=== PATIENT | female | born 1955 | race Caucasian/White ===

== ENCOUNTER 2016-06-19 | Emergency (ER) | payer MEDICARE, MEDICAID, OTHER | END 2016-06-19 20:43 | disposition left against medical advice (07) | DX: Z53.21 Procedure and treatment not carried out due to patient leaving prior to being seen by health care provider (principal) ==

== ENCOUNTER 2016-06-23 17:26 | Emergency (ER) | payer MEDICARE, MEDICAID, OTHER ==
[2016-06-23] MEDS ORDERED: SODIUM CHLORIDE 0.9% 1,000 ML IV ONE (17:48)
[2016-06-23] MEDS ORDERED: ONDANSETRON 4 MG/2 ML VIAL IVP STA (17:48)
[2016-06-23] MEDS ORDERED: KETOROLAC 60 MG/2 ML VIAL IVP STA (17:48)
[2016-06-23] MEDS ORDERED: LOPERAMIDE 2 MG CAPSULE PO ONE ×2 (17:56→18:51)
[2016-06-23] MEDS ORDERED: ONDANSETRON 4 MG/2 ML VIAL ONE (17:56)
[2016-06-23] MEDS ORDERED: KETOROLAC 30 MG/ML VIAL ONE (17:56)
[2016-06-23] MEDS: LOPERAMIDE 2 MG CAPSULE PO STA ×2 (17:59→18:00)
[2016-06-23] MEDS ORDERED: ONDANSETRON ODT 4 MG Prepack 2 TL STA (18:47)
[2016-06-23] MEDS ORDERED: LOPERAMIDE 2 MG CAPSULE PO STA (18:47)
[2016-06-23] MEDS ORDERED: ONDANSETRON ODT 4 MG Prepack 2 TL ONE (18:51)
== END 2016-06-23 19:19 | disposition home or self-care (01) ==
DX: E86.0 Dehydration (principal); R05 Cough; R11.2 Nausea with vomiting, unspecified; R19.7 Diarrhea, unspecified; I10 Essential (primary) hypertension; E11.9 Type 2 diabetes mellitus without complications; Z79.4 Long term (current) use of insulin; J45.909 Unspecified asthma, uncomplicated; Z79.82 Long term (current) use of aspirin
CPT/HCPCS: 36415; 71020; 80053; 83690; 85025; 96374; 96375; 99283; 99284; A9270

== ENCOUNTER 2016-10-08 07:22 | Outpatient (CLI) | payer MEDICARE, MEDICAID | END 2016-10-08 23:59 | DX: N76.0 Acute vaginitis (principal) ==

== ENCOUNTER 2017-03-10 12:44 | Emergency (ER) | payer MEDICARE, MEDICAID ==
[2017-03-10] MEDS ORDERED: diphenhydrAMINE INJ 50 MG/ML VIAL IVP STA (13:17)
[2017-03-10] MEDS ORDERED: PROCHLORPERAZINE 10 MG/2 ML VIAL IVP STA (13:17)
[2017-03-10] MEDS ORDERED: SODIUM CHLORIDE 0.9% 1,000 ML IV ONE (13:17)
--- NOTE | 2017-03-10 13:19 | ED Physician Documentation ---
History of Present Illness - Stated complaint Stated Complaint: MIGRAINE - Chief complaint Chief Complaint: Neuro - Additonal information Additional information: hx from pt 61 female hx migraine DUENAS that feels like prior migraines, frontal, severe, assoc NV and photophobia since yesterday no fever no trauma no CO no numbness or weakness Review of Systems Constitutional: denies: Fever Eyes: reports: Photophobia Cardiac: denies: Chest pain / pressure Respiratory: denies: Dyspnea GI: reports: Nausea, Vomiting Neurologic: reports: Headache. 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 - Present Medications Home Medications: Ambulatory Orders Medication Instructions Recorded Confirmed Furosemide [Lasix] 20 mg PO BID 04/26/14 03/10/17 Insulin Detemir [Levemir Flexpen] 50 unit SQ BID 04/26/14 03/10/17 Losartan [Cozaar] 50 mg PO DAILY 04/26/14 03/10/17 Omeprazole 20 mg PO DAILY 04/26/14 03/10/17 Pravastatin Sodium 50 mg PO DAILY 04/26/14 03/10/17 metFORMIN [Glucophage] 1,000 mg PO BID 04/26/14 03/10/17 oxyCODONE [Roxicodone] 10 mg PO Q6H PRN #20 tablet 04/15/15 03/10/17 Empagliflozin [Jardiance] 25 mg PO DAILY 03/10/17 03/10/17 Promethazine [Phenergan] 25 mg PO Q6H PRN #10 tablet 03/10/17 - Allergies Allergies/Adverse Reactions: Allergies Allergy/AdvReac Type Severity Reaction Status Date / Time Penicillins Allergy Rash Verified 06/23/16 17:29 hydromorphone HCl * AdvReac Nausea Verified 06/23/16 17:29 [From Dilaudid] - Social History Does the pt smoke?: No Smoking Status: Never smoker Does the pt drink ETOH?: Yes Does the pt have substance abuse?: No - Immunizations Immunizations are current?: Yes PD ED PE NORMAL - Vitals Vital signs reviewed: Yes - General General: Alert and oriented X 3 - HEENT HEENT: PERRL, EOMI, Other (no TA TTP, gobes soft, not injected or hazy) - Neck Neck: Supple, no meningeal sign - Cardiac Cardiac: RRR - Respiratory Respiratory: No respiratory distress, Clear bilaterally - Abdomen Abdomen: Soft, Non tender - Derm Derm: Normal color - Neuro Neuro: Alert and oriented X 3, No motor deficit, No sensory deficit Results - Vitals Vitals: Vital Signs - 24 hr 03/10/17 03/10/17 12:54 13:47 Temperature 36.3 C L 36.6 C Heart Rate 84 97 Respiratory 16 16 Rate Blood Pressure 186/86 H 172/73 H O2 Saturation 99 97 Oxygen O2 Source Room air - Labs Labs: Laboratory Tests 03/10/17 13:12 POC Whole Bld Glucose 131 H PD MEDICAL DECISION MAKING - ED course ED course: toradol compazine benadryl IVF and felt better Departure - Departure Disposition: 01 Home, Self Care Clinical Impression: Migraine Condition: Good Instructions: ED Headache Migraine Prescriptions: Promethazine [Phenergan] 25 mg PO Q6H PRN #10 tablet PRN Reason: vomiting Comments: Stay at home and rest and drink plenty of fluids for the next 24 hr. If the headache starts to come back, take the phenergan so you do not vomit and then you should be able to keep down tylenol and motrin Follow up with your PMD Return if worse or new symptoms develop
[2017-03-10] MEDS ORDERED: PROCHLORPERAZINE 10 MG/2 ML VIAL ONE (13:26)
[2017-03-10] MEDS ORDERED: diphenhydrAMINE INJ 50 MG/ML VIAL ONE (13:26)
[2017-03-10] MEDS ORDERED: SODIUM CHLORIDE FLUSH 0.9% 10 ML SYRINGE IVP ONE (13:26)
[2017-03-10 13:48] VITALS: BP 172/73
== END 2017-03-10 14:27 | disposition home or self-care (01) ==
LOC: ED 12:44
DX: G43.909 Migraine, unspecified, not intractable, without status migrainosus (principal); J45.909 Unspecified asthma, uncomplicated; E11.9 Type 2 diabetes mellitus without complications; Z79.84 Long term (current) use of oral hypoglycemic drugs; Z98.84 Bariatric surgery status
CPT/HCPCS: 96374; 96375; 99283; 99284

== ENCOUNTER 2020-11-03 02:43 | Emergency (ER) | payer MEDICARE, MEDICAID ==
--- NOTE | 2020-11-03 03:02 | ED Physician Documentation ---
History of Present Illness - Stated complaint Stated Complaint: HEADACHE, LOWER BACK PX, ITCHY - Chief complaint Chief Complaint: General - History obtained from History obtained from: Patient - History of Present Illness Timing: Enter time (22:00), Today Pain level now: 6 Improved by: nothing Worsened by: no exacerbating factors - Additonal information Additional information: Patient presents complaining primarily of diffuse pruritus. She also has nausea and vomiting, generalized headache. She also complains of back pain, although this is chronic. patient saw her primary care provider earlier today, and was started on new prescriptions for her chronic pain. She has been taking oxycodone 10 mg TID, but today she was started on Suboxone and gabapentin. She says she took a dose of Suboxone at 5 PM and a second dose at 10 PM. She said she took her first dose of gabapentin at 10 PM. She says she had reservations about starting gabapentin, because of some Side effects with prior use. After taking her doses of these medications at 10 PM, she developed generalized pruritus, followed by nausea and vomiting and generalized headache. Review of Systems Constitutional: reports: Reviewed and negative Cardiac: reports: Reviewed and negative Respiratory: reports: Reviewed and negative GI: reports: Nausea, Vomiting. 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 - Present Medications Home Medications: Ambulatory Orders Medication Instructions Recorded Confirmed Furosemide [Lasix] 20 mg PO BID 04/26/14 11/03/20 Insulin Detemir [Levemir Flexpen] 50 unit SQ BID 04/26/14 11/03/20 Losartan [Cozaar] 50 mg PO DAILY 04/26/14 11/03/20 Omeprazole 20 mg PO DAILY 04/26/14 11/03/20 Pravastatin Sodium 50 mg PO DAILY 04/26/14 11/03/20 metFORMIN [Glucophage] 1,000 mg PO BID 04/26/14 11/03/20 oxyCODONE [Roxicodone] 10 mg PO Q6H PRN #20 tablet 04/15/15 11/03/20 Empagliflozin [Jardiance] 25 mg PO DAILY 03/10/17 11/03/20 LORazepam [Ativan] 0.5 - 1 mg PO Q6H PRN #7 tablet 11/03/20 Ondansetron Odt [Zofran] 4 mg TL Q6H PRN #14 tablet 11/03/20 hydrOXYzine PAMOATE [Vistaril] 25 - 50 mg PO Q6H PRN #20 11/03/20 predniSONE [Deltasone] 40 mg PO DAILY 3 Days #6 tablet 11/03/20 - Allergies Allergies/Adverse Reactions: Allergies Allergy/AdvReac Type Severity Reaction Status Date / Time Penicillins Allergy Rash Verified 06/23/16 17:29 gabapentin AdvReac Itching Verified 11/03/20 02:58 hydromorphone HCl * AdvReac Nausea Verified 06/23/16 17:29 [From Dilaudid] - Social History Does the pt smoke?: No Smoking Status: Never smoker Does the pt drink ETOH?: Yes Does the pt have substance abuse?: No - Immunizations Immunizations are current?: Yes - POLST Patient has POLST: No PD ED PE NORMAL - Vitals Vital signs reviewed: Yes - General General: Alert and oriented X 3, No acute distress, Well developed/nourished - HEENT HEENT: Moist mucous membranes - Cardiac Cardiac: RRR, No murmur - Respiratory Respiratory: No respiratory distress, Clear bilaterally - Derm Derm: Normal color, Warm and dry, No rash - Neuro Neuro: Alert and oriented X 3 Results - Vitals Vitals: Vital Signs - 24 hr 11/03/20 11/03/20 11/03/20 02:52 02:56 04:08 Temperature 36.9 C 36.9 C Heart Rate 93 93 83 Respiratory 17 17 15 Rate Blood Pressure 163/81 H 163/81 H 127/55 L O2 Saturation 95 95 94 11/03/20 04:13 Temperature Heart Rate Respiratory 16 Rate Blood Pressure O2 Saturation Oxygen O2 Source Room air PD MEDICAL DECISION MAKING - ED course Complexity details: re-evaluated patient, considered differential, d/w patient ED course: patient says she already took Benadryl prior to arrival in this did not help with her symptoms. Patient drove self to the emergency department. She is given Decadron PO 10 mg in the emergency department for possible allergic reaction. There is no rash to suggest allergic reaction but she is complaining of intense diffuse pruritis. Her nausea was improved after PO Zofran. She initially says she had run out of her prescription oxycodone, raising possibility of withdrawal contributing or causing her symptoms. However, when I raise this possibility, she then says that she has not run out of her oxycodone and still has some at home. I offered to give her Vistaril for her pruritis, but explained that this would require procuring a ride home as it can cause drowsiness that would make driving hazardous. She elected to take the [place] roll home and take it once she is home. I explained rhat she is not to drive for a minimum of six hours after taking a dose of vistaril, and only if she then feels no drowsiness. I also provided a prescription for a short course of lorazepam. Departure - Departure Disposition: 01 Home, Self Care Clinical Impression: Allergic reaction Qualifiers: Encounter type: initial encounter Qualified Code(s): T78.40XA - Allergy, unspecified, initial encounter Condition: Good Instructions: ED Drug React Allergic Follow-Up: Amy Salazar MD [Primary Care Provider] - Prescriptions: LORazepam [Ativan] 0.5 - 1 mg PO Q6H PRN #7 tablet PRN Reason: Anxiety predniSONE [Deltasone] 40 mg PO DAILY 3 Days #6 tablet hydrOXYzine PAMOATE [Vistaril] 25 - 50 mg PO Q6H PRN #20 PRN Reason: Itching Ondansetron Odt [Zofran] 4 mg TL Q6H PRN #14 tablet PRN Reason: Nausea / Vomiting Discharge Date/Time: 11/03/20 04:22
[2020-11-03] MEDS ORDERED: DEXAMETHASONE 10 MG/ML VIAL PO STA (03:17)
[2020-11-03] MEDS ORDERED: ONDANSETRON ODT 4 MG TABLET TL STA (03:17)
[2020-11-03] MEDS ORDERED: CHERRY SYRUP 10 ML UDC PO ONE (03:17)
[2020-11-03 04:09] VITALS: BP 127/55
[2020-11-03] MEDS ORDERED: ONDANSETRON ODT 4 MG Prepack 2 TL STA (04:09)
[2020-11-03] MEDS ORDERED: hydrOXYzine PAMOATE 25 MG CAPSULE PO STA (04:09)
== END 2020-11-03 04:22 | disposition home or self-care (01) ==
LOC: ED 02:43
DX: T78.40XA Allergy, unspecified, initial encounter (principal); E11.9 Type 2 diabetes mellitus without complications; Z79.4 Long term (current) use of insulin
CPT/HCPCS: 99284; A9270; Q0162

== ENCOUNTER 2020-11-05 18:35 | Emergency (ER) | payer MEDICARE, MEDICAID ==
--- OUTSIDE RECORDS SUMMARY | 2020-11-05 18:38 | EXTERNAL MEDICAL SUMMARY RPT | Continuity of Care Document ---
:1955 Demographics Phone Unavailable Preferred Language Unknown Marital Status Unknown Lutheran Affiliation Unknown Race Unknown Ethnic Group Unknown Author Organization [facility] Address [address] [place] [address] Phone Allergies Encounters Medications Problems Results
--- OUTSIDE RECORDS SUMMARY | 2020-11-05 18:42 | EXTERNAL MEDICAL SUMMARY RPT | Continuity of Care Document ---
:1955 Demographics Phone Unavailable Preferred Language Unknown Marital Status Unknown Catholic Affiliation Unknown Race Unknown Ethnic Group Unknown Author Organization [facility] Address [address] [place] [address] Phone Allergies Encounters Medications Problems Results
[2020-11-05] MEDS ORDERED: LORATADINE 10 MG TABLET PO STA (19:00)
--- NOTE | 2020-11-05 19:00 | ED Physician Documentation ---
History of Present Illness - Stated complaint Stated Complaint: POSSIBLE ALLERGIC REACTION - Chief complaint Chief Complaint: Allergic Rx - History obtained from History obtained from: Patient - Additonal information Additional information: 65-year-old woman with chronic pain switched from oxycodone to gabapentin and Suboxone earlier this week. Subsequently became very pruritic all over. Also some mild confusion. She has not taken any gabapentin in the last 2 days but continues on the Suboxone. Denies drug or alcohol use. She still mildly confused and very itchy despite being started on Vistaril for this by Dr. Sarmiento the other night. She denies throat swelling or short of breath but she is complaining of significant dry throat. 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 - Present Medications Home Medications: Ambulatory Orders Medication Instructions Recorded Confirmed Insulin Detemir [Levemir Flexpen] 45 unit SQ BID 04/26/14 11/05/20 Losartan [Cozaar] 50 mg PO DAILY 04/26/14 11/05/20 Omeprazole 20 mg PO DAILY 04/26/14 11/05/20 Pravastatin Sodium 50 mg PO DAILY 04/26/14 11/05/20 metFORMIN [Glucophage] 1,000 mg PO BID 04/26/14 11/05/20 oxyCODONE [Roxicodone] 10 mg PO Q6H PRN #20 tablet 04/15/15 11/03/20 LORazepam [Ativan] 0.5 - 1 mg PO Q6H PRN #7 tablet 11/03/20 Ondansetron Odt [Zofran] 4 mg TL Q6H PRN #14 tablet 11/03/20 11/05/20 hydrOXYzine PAMOATE [Vistaril] 25 - 50 mg PO Q6H PRN #20 11/03/20 11/05/20 predniSONE [Deltasone] 40 mg PO DAILY 3 Days #6 tablet 11/03/20 11/05/20 Albuterol Sulfate [Proair Hfa 1 - 2 puffs IH Q4HR PRN 11/05/20 11/05/20 Inhaler] Bupropion HCl [Wellbutrin Xl] 300 mg PO DAILY 11/05/20 11/05/20 DULoxetine [Cymbalta] 30 mg PO DAILY 11/05/20 11/05/20 Tizanidine HCl [Zanaflex] 4 mg ORAL Q8HR PRN 11/05/20 11/05/20 oxyCODONE ER [OxyCONTIN] 10 mg PO TID #6 tablet 11/05/20 - Allergies Allergies/Adverse Reactions: Allergies Allergy/AdvReac Type Severity Reaction Status Date / Time Penicillins Allergy Rash Verified 11/05/20 18:43 gabapentin AdvReac Itching Verified 11/05/20 18:43 hydromorphone HCl * AdvReac Nausea Verified 11/05/20 18:43 [From Dilaudid] - Social History Does the pt smoke?: No Smoking Status: Never smoker Does the pt drink ETOH?: Yes Does the pt have substance abuse?: No - Immunizations Immunizations are current?: Yes - POLST Patient has POLST: No PD ED PE NORMAL - Vitals Vital signs reviewed: Yes - General General: Alert and oriented X 3, No acute distress, Well developed/nourished - HEENT HEENT: PERRL, EOMI, Pharynx benign - Neck Neck: Supple, no meningeal sign, No bony TTP - Cardiac Cardiac: RRR, No murmur - Respiratory Respiratory: No respiratory distress, Clear bilaterally - Abdomen Abdomen: Non tender - Neuro Neuro: Alert and oriented X 3, No motor deficit, No sensory deficit, Normal speech Results - Vitals Vitals: Vital Signs - 24 hr 11/05/20 18:38 Temperature 36.3 C L Heart Rate 96 Respiratory 18 Rate Blood Pressure 177/93 H O2 Saturation 97 Oxygen O2 Source Room air - Labs Labs: Laboratory Tests 11/05/20 11/05/20 19:10 19:10 Sodium 136 Potassium 5.1 H Chloride 96 L Carbon Dioxide 31 Anion Gap 9.0 BUN 40 H Creatinine 1.4 H Estimated GFR (MDRD) 38 L Glucose 254 H Calcium 10.0 Total Bilirubin 0.6 AST 15 ALT 17 Alkaline Phosphatase 53 Ammonia 19.9 Total Protein 7.8 Albumin 4.4 Globulin 3.4 Albumin/Globulin Ratio 1.3 Lipase 19 L PD MEDICAL DECISION MAKING - ED course ED course: -year-old woman with terrible itching in the setting of switching from oxycodone 30 mg a day long-acting to Suboxone and gabapentin. Doubt the gabapentin is still causative since she has not had it in 2 days. She has very mild confusion and I was hesitant to add other antihistamines that would affect her mentation so she was given Claritin which actually did help a bit. I think the combination of polypharmacy and Suboxone is what is causing her itching and I will give her enough oxycodone to last until she can see her doctor on Saturday and we will stop the other sedative/opiates. Departure - Departure Disposition: 01 Home, Self Care Clinical Impression: Drug-induced pruritus Condition: Good Record reviewed to determine appropriate education?: Yes Instructions: ED Drug React Allergic Prescriptions: oxyCODONE ER [OxyCONTIN] 10 mg PO TID #6 tablet Comments: You can take [id number] Claritin for the itching. Otherwise I would stop the Suboxone and tizanidine especially given how much confusion you are having. Follow-up with your doctor on Saturday as scheduled. Return for new or worsening symptoms.
[2020-11-05 19:30] LABS: ALBUMIN 4.4 g/dL (3.2-5.5); ALBUMIN/GLOBULIN RATIO 1.3 (1.0-2.2); BILIRUBIN,TOTAL 0.6 mg/dL (0.2-1.0); CREATININE 1.4 mg/dL (0.4-1.0); POTASSIUM 5.1 mmol/L (3.5-5.0); TOTAL PROTEIN 7.8 g/dL (6.7-8.2)
[2020-11-05] MEDS ORDERED: oxyCODONE ER 10 MG TABLET PO STA ×2 (19:50→19:53)
[2020-11-05 20:03] VITALS: BP 168/66
== END 2020-11-05 20:04 | disposition home or self-care (01) ==
LOC: ED 18:35
DX: L29.8 Other pruritus (principal); I10 Essential (primary) hypertension; E11.9 Type 2 diabetes mellitus without complications; Z79.84 Long term (current) use of oral hypoglycemic drugs
CPT/HCPCS: 36415; 80053; 82140; 83690; 99283; A9270

== ENCOUNTER → 2022-04-30 | Outpatient (CLI) | payer MEDICARE, MEDICAID | END | disposition left against medical advice (07) | LOC: EMS 00:45 | DX: R06.02 Shortness of breath (principal); R50.9 Fever, unspecified; R05.9 Cough, unspecified; R51.9 Headache, unspecified ==

== ENCOUNTER 2023-03-21 08:32 | Outpatient (CLI) | payer MEDICARE, MEDICAID ==
--- NOTE | 2023-03-21 18:47 | XRAY Report ---
PROCEDURE: Chest 2 View X-Ray INDICATIONS: EXPIRATORY WHEEZING,ACUTE COUGH,DYSNEA TECHNIQUE: 2 views of the chest were obtained. COMPARISON: None. FINDINGS: Surgical changes and devices: None. Lungs and pleura: No pleural effusions or pneumothorax. Lungs are clear. Mediastinum: Mediastinal contours appear normal. Heart size is normal. Bones and chest wall: No suspicious bony lesions. Overlying soft tissues appear unremarkable. IMPRESSION: Normal two-view chest x-ray Reviewed by: Benedicto Walls MD on 03/21/2023 5:46 PM AKDT Approved by: Benedicto Walls MD on 03/21/2023 5:46 PM AKDT Station ID: [id number]
== END 2023-03-21 08:33 | disposition home or self-care (01) ==
LOC: DI 08:32
PROVIDERS: ATTEND Registered Nurse
DX: R06.2 Wheezing (principal); R05.1 Acute cough; R06.00 Dyspnea, unspecified

== ENCOUNTER 2023-05-10 14:42 | Outpatient (CLI) | payer MEDICARE, MEDICAID ==
[2023-05-10 15:14] LABS: CALCIUM 9.3 mg/dL (8.5-10.3); CREATININE 1.1 mg/dL (0.6-1.3); POTASSIUM 4.5 mmol/L (3.5-4.5)
== END 2023-05-10 14:43 | disposition home or self-care (01) ==
LOC: LAB 14:42
PROVIDERS: ATTEND Family Medicine
DX: U07.1 COVID-19 (principal)
CPT/HCPCS: 36415; 80048